=== PATIENT | male | born 1985 | race Caucasian/White ===

== ENCOUNTER 2017-12-05 10:00 | Emergency (ER) | payer BC ==
[2017-12-05 10:10] VITALS: BP 136/98
[2017-12-05] MEDS ORDERED: ACETAMINOPHEN 500 MG TAB PO ONE (10:21)
--- NOTE | 2017-12-05 10:26 | EDPHY ---
H & P Time Seen by Provider: 12/05/17 10:04 HPI/ROS: This patient reports onset of great toe pain at them metatarsophalangeal joint over the past 24 hr right-sided associated slight redness to the area. The pain was gradual onset without any trauma he describes it as achy in nature but more sharp when he attempts to walk. He has never had this occur to him before. He reports that he drinks beer most days 2-3 day and eats protein as well. He usually eats meat with 2 or more meals a day. He reports no exacerbating factors. He reports the current intensity is 8/10. He has not taken any medication for this ailment. ROS: Constitutional: No fevers or other complaints musculoskeletal: No other joint pain at this time. No antecedent trauma Integumentary: No significant skin rash or other complaints 7 point review of symptoms is performed and otherwise negative with exception of pertinent positives and negatives listed in HPI and ROS Past Medical/Surgical History: Otherwise healthy Social History: Drinks beer daily. Eats protein-meat daily Smokes marijuana Works as a chef manager Smoking Status: Former smoker Physical Exam: Physical Exam Vital signs are normal. General: No acute distress Eyes: Pupils equal and react to light. Extraocular motions are intact. Lungs: No respiratory distress. Cardiac: Brisk capillary refill is intact throughout. Pulses are 2+ and symmetric in the affected extremity. Skin: No rash or pallor. Extremities: Atraumatic normal except for right great toe Right great toe: Patient has swelling erythema tenderness to the 1st metatarsophalangeal joint pain worsens with movement. There is no ecchymosis. No malrotation to the affected great toe. No significant foot findings other than this isolated metatarsophalangeal joint inflammatory process. Neuro: Alert and oriented x3 with no sensorimotor deficits. Initial differential diagnosis: Gout, pseudogout, other monoarthritis, doubt cellulitis. Doubt septic joint. Constitutional: Initial Vital Signs Temperature (C) 36.9 C 12/05/17 10:07 Heart Rate 76 12/05/17 10:07 Respiratory Rate 18 12/05/17 10:07 Blood Pressure 136/98 H 12/05/17 10:07 O2 Sat (%) 94 12/05/17 10:07 O2 Delivery Mode Room Air Allergies/Adverse Reactions: Penicillins Allergy (Verified 12/05/17 10:06) Home Medications: Medication Instructions Recorded Indomethacin [Indocin 25 mg (RX)] 50 mg PO TID PRN #50 cap 12/05/17 Prozac 20 MG (*) 12/05/17 MDM/Departure - MDM Medications Given: Discontinued Medications Acetaminophen (Tylenol) 1,000 mg PO EDNOW ONE Stop: 12/05/17 10:22 Last Admin: 12/05/17 10:26 Dose: 1,000 mg ED Course/Re-evaluation: Discussion: This patient appears well clinically with isolated metatarsophalangeal joint pain, inflammation history of daily alcohol-beer E use and large amount of meat intake. Given his high purine diet and clinical findings that I think that this patient has gout and counseled regarding this. He agrees to cut back on alcohol intake, protein intake and start Indocin. - Depart Disposition: Home, Routine, Self-Care Clinical Impression: Gout Qualifiers: Gout site: toe Gout etiology: other secondary cause Chronicity: acute Laterality: right Qualified Code(s): M10.471 - Other secondary gout, right ankle and foot Condition: Good Instructions: Indomethacin (By mouth), Low Purine Diet (ED), Gout (ED) Additional Instructions: Diagnosis: Acute gout of great toe Plan: A cut back on protein in your diet until symptoms resolved Cut back on alcohol until symptoms resolved Drink plenty of water Indocin anti-inflammatory. Do not take ibuprofen at the same time as this is the same class-a nonsteroidal anti-inflammatory drug Tylenol in addition for pain as needed - do not exceed 3000 mg in 24 hr Postop shoe for comfort until symptoms improve Follow up with primary care physician listed below for recheck in 5-7 days. Return emergency department for any significant worsening despite the treatment plan Prescriptions: Indomethacin [Indocin 25 mg (RX)] 50 mg PO TID PRN #50 cap PRN Reason: pain Referrals: NONE *PRIMARY CARE P,. [Unknown] - As per Instructions Brianna Ayala MD [Medical Doctor] - As per Instructions
== END 2017-12-05 10:32 | disposition home or self-care (01) ==
LOC: CED 10:00
DX: M10.071 Idiopathic gout, right ankle and foot (principal)
CPT/HCPCS: L4386